=== PATIENT | male | born 1955 | race Caucasian/White ===

== ENCOUNTER 2017-03-21 14:24 | Outpatient (CLI) | payer BC ==
[2017-03-21] MEDS ORDERED: IOHEXOL 100 ML IV ONE (14:53)
== END 2017-03-21 19:23 | disposition home or self-care (01) ==
LOC: SCT 14:24
PROVIDERS: ATTEND Internal Medicine
DX: M47.892 Other spondylosis, cervical region (principal); M81.0 Age-related osteoporosis without current pathological fracture; R22.0 Localized swelling, mass and lump, head
CPT/HCPCS: 70491; 72050; Q9967